=== PATIENT | female | born 1980 | race Caucasian/White ===

== ENCOUNTER → 2023-08-01 | Outpatient (CLI) | payer BC ==
[~2023-08-01] MED LIST: 'zithromax250 MG PO; AMOXICILLIN500 MG PO; BENTYL10 MG PO; CLARITIN-D 12 H1 TAB PO; CLARITIN10 MG PO; FLONASE ALLERG9.9 ML NAS; GADOTERATE MEGLUMINE 10 MMOL/20 ML VIAL IV ONE; LISINOPRIL20 MG PO; PREDNISONE10 MG PO; ROBITUSSIN AC 110 ML PO; ZOFRAN ODT4 MG SL
== END | disposition home or self-care (01) ==
LOC: MRI 00:45
PROVIDERS: ATTEND Psychiatry & Neurology Neurology
DX: M50.31 Other cervical disc degeneration, high cervical region (principal); M50.323 Other cervical disc degeneration at C6-C7 level; M50.322 Other cervical disc degeneration at C5-C6 level; M50.321 Other cervical disc degeneration at C4-C5 level; R26.0 Ataxic gait; R42 Dizziness and giddiness; G25.2 Other specified forms of tremor; W19.XXXA Unspecified fall, initial encounter

== ENCOUNTER → 2023-08-18 | Outpatient (CLI) | payer BC ==
[~2023-08-18] MED LIST changes: -GADOTERATE MEGLUMINE 10 MMOL/20 ML VIAL IV ONE
== END | disposition home or self-care (01) ==
LOC: MRI 02:27
PROVIDERS: ATTEND Psychiatry & Neurology Neurology
DX: M48.061 Spinal stenosis, lumbar region without neurogenic claudication (principal); M25.78 Osteophyte, vertebrae

== ENCOUNTER → 2023-10-20 | Outpatient (CLI) | payer BC ==
[~2023-10-20] MED LIST changes: +GADOTERATE MEGLUMINE 10 MMOL/20 ML VIAL IV ONE
== END | disposition home or self-care (01) ==
LOC: MRI 01:07
PROVIDERS: ATTEND Internal Medicine Rheumatology
DX: M62.81 Muscle weakness (generalized) (principal); R25.1 Tremor, unspecified; R20.2 Paresthesia of skin; R49.0 Dysphonia; R29.810 Facial weakness; R15.9 Full incontinence of feces; R32 Unspecified urinary incontinence; F80.81 Childhood onset fluency disorder

== ENCOUNTER → 2023-10-21 | Outpatient (CLI) | payer BC | END | disposition home or self-care (01) | LOC: MRI 01:49 | PROVIDERS: ATTEND Internal Medicine Rheumatology | DX: M50.223 Other cervical disc displacement at C6-C7 level (principal); M25.78 Osteophyte, vertebrae; M47.812 Spondylosis without myelopathy or radiculopathy, cervical region; M48.02 Spinal stenosis, cervical region; M41.84 Other forms of scoliosis, thoracic region; M62.81 Muscle weakness (generalized); R25.1 Tremor, unspecified; F80.81 Childhood onset fluency disorder; R20.2 Paresthesia of skin; R49.0 Dysphonia; R29.810 Facial weakness; R15.9 Full incontinence of feces; R32 Unspecified urinary incontinence ==

== ENCOUNTER → 2023-12-15 | Outpatient (CLI) | payer BC ==
[~2023-12-15] MED LIST changes: -GADOTERATE MEGLUMINE 10 MMOL/20 ML VIAL IV ONE
[2023-12-15 09:00] LABS: ALKALINE PHOSPHATASE 112 U/L (46-116); BUN 10 mg/dl (9-23); CHLORIDE 106 mmol/L (98-107); CHOLESTEROL 130 mg/dL (<200); LDL CHOLESTEROL 56 mg/dL (9-159); POTASSIUM 3.5 mmol/L (3.4-5.1); SGPT/ALT 16 U/L (5-49); TRIGLYCERIDES 195 mg/dl (<150)
[2023-12-15 09:02] LABS: VITAMIN D, 25-HYDROXY 85.2 ng/mL (30-100)
[2023-12-16 02:07] LABS: ALKALINE PHOSPHATASE, SERUM 118 IU/L (44-121)
[2023-12-16 04:06] LABS: THYROID PEROXIDASE (TPO) AB <9 IU/mL (0-34)
[2023-12-16 14:09] LABS: THYROGLOBULIN ANTIBODY <1.0 IU/mL (0.0-0.9)
[2023-12-16 15:07] LABS: BONE FRACTION 30 % (14-68); INTESTINAL FRACTION 2 % (0-18); LIVER FRACTION 68 % (18-85)
== END | disposition home or self-care (01) ==
LOC: LAB 07:55
PROVIDERS: ATTEND Internal Medicine
DX: E78.5 Hyperlipidemia, unspecified (principal); E27.1 Primary adrenocortical insufficiency; K76.0 Fatty (change of) liver, not elsewhere classified; E83.39 Other disorders of phosphorus metabolism; E04.9 Nontoxic goiter, unspecified

== ENCOUNTER → 2024-03-20 | Outpatient (CLI) | payer BC | END | disposition home or self-care (01) | LOC: LAB 07:26 | PROVIDERS: ATTEND Nurse Practitioner Family | DX: R26.9 Unspecified abnormalities of gait and mobility (principal); M62.81 Muscle weakness (generalized); R13.10 Dysphagia, unspecified; F80.81 Childhood onset fluency disorder ==

== ENCOUNTER → 2024-06-15 | Outpatient (CLI) | payer BC | END | disposition home or self-care (01) | LOC: CT 00:50 | PROVIDERS: ATTEND Emergency Medicine | DX: E27.8 Other specified disorders of adrenal gland (principal); R25.1 Tremor, unspecified ==

== ENCOUNTER → 2024-06-27 | Outpatient (CLI) | payer BC | END | disposition home or self-care (01) | LOC: US 09:10 | PROVIDERS: ATTEND Emergency Medicine | DX: N88.8 Other specified noninflammatory disorders of cervix uteri (principal); N83.209 Unspecified ovarian cyst, unspecified side ==

== ENCOUNTER → 2024-09-03 | Outpatient (CLI) | payer BC ==
[2024-09-05 00:06] LABS: AMPHIPHYSIN ANTIBODY Negative (Negative); ANABT3 Negative (Negative); ANTI-HU AB Negative (Negative); INTERPRETATION Negative (Negative)
== END | disposition home or self-care (01) ==
LOC: LAB 09:56
PROVIDERS: ATTEND Internal Medicine
DX: R29.90 Unspecified symptoms and signs involving the nervous system (principal)